=== PATIENT | male | born 1990 | race Caucasian/White ===

== ENCOUNTER 2022-08-30 10:40 | Day surgery (SDC) | payer OTHER, SELFPAY ==
--- NOTE | 2022-08-29 10:56 | HO.ANESPROP2 ---
Documented by User: Marcy Dominguez NP 08/29/22 10:57 HPI - Anesthesia Eval Consult details Narrative: 31yo M for Upper Endoscopy [facility] Past Medical History Medical History (Updated 08/29/22 @ 09:26 by Cooper Almodovar RN) GERD (gastroesophageal reflux disease) Hiatal hernia Surgical History Surgical History (Updated 08/29/22 @ 09:27 by Cooper Almodovar RN) History of esophagogastroduodenoscopy (EGD) Social History Social History (Updated 08/29/22 @ 09:29 by Cooper Almodovar RN) Patient Tobacco Use Status: Never used Tobacco Use of substances other than those prescribed or required for medical reasons: No Are you DNR?: No Advance Directives: No Advance Directives Information Provided: Yes Meds Allergies Allergy/AdvReac Type Severity Reaction Status Date / Time No Known Allergies Allergy Verified 08/30/22 11:01 Home Medications Medication Instructions Recorded Confirmed Last Taken Type esomeprazole magnesium 20 mg 20 mg PO DAILY 08/29/22 08/30/22 08/30/22 History capsule,delayed release (Nexium) Exam Exam Date and Time: August 29, 2022 1056 Assessment and Plan Assessment Anesthesia Assessment: Chart Reviewed Documented by User: Joel Solis MD 08/30/22 12:39 [facility] Past Medical History Medical History (Updated 08/29/22 @ 09:26 by Cooper Almodovar RN) GERD (gastroesophageal reflux disease) Hiatal hernia Family History Family history of problems with anesthesia: No Surgical History Surgical History (Updated 08/29/22 @ 09:27 by Cooper Almodovar RN) History of esophagogastroduodenoscopy (EGD) History of Problems with Anesthesia: No Social History Social History (Updated 08/29/22 @ 09:29 by Cooper Almodovar RN) Patient Tobacco Use Status: Never used Tobacco Use of substances other than those prescribed or required for medical reasons: No Are you DNR?: No Advance Directives: No Advance Directives Information Provided: Yes Meds Allergies Allergy/AdvReac Type Severity Reaction Status Date / Time No Known Allergies Allergy Verified 08/30/22 11:01 Home Medications Medication Instructions Recorded Confirmed Last Taken Type esomeprazole magnesium 20 mg 20 mg PO DAILY 08/29/22 08/30/22 08/30/22 History capsule,delayed release (Nexium) Exam Airway Mallampati Class: II TM Dist: >3cm Neck ROM: Full Assessment and Plan Assessment Anesthesia Assessment: Anesthesia Plan Discussed Final Anesthetic Review Family History of Problems with Anesthesia: No History of Problems with Anesthesia: No NPO: Yes ASA Class: II Final Preanesthetic Review: No Changes in Pt Med Stat, Meds/Allgs Chart Reviewed and Consent Obtained/Reviewed Patient Risk: Low Procedure Risk: Low Anesthetic Plan Anesthetic Plan: MAC: Disposition: Standard PACU
[2022-08-30 11:02] VITALS: BMI 25.1
[2022-08-30 11:04] VITALS: BP 127/86; PULSE 65; RESP 16; TEMP 36.6; O2SAT 100
[2022-08-30] MEDS: Lactated Ringers 1,000 ML 100 ML IVCONT (11:19)
[2022-08-30 12:16] VITALS: BP 101/64; PULSE 85; RESP 16; TEMP 36.4; O2SAT 93
--- NOTE | 2022-08-30 12:22 | P.BOP_ITS ---
Brief Operative Note Date of Service: 08/30/22 Pre-op diagnosis: GERD Post-op diagnosis: other (Hiatal hernia, GERD, Gastric polyps) Procedure: EGD with biopsies Surgeon: Tao Ferris Anesthesia: MAC Was an Steward/Stewardess Lounge used for this Procedure?: No Estimated blood loss (mL): 2.0 Pathology: other (A. EG Junction at 38cm B. Gastric polyps) Condition: stable Disposition: PACU
[2022-08-30 12:31] VITALS: BP 108/70; PULSE 70; RESP 18; TEMP 36.5; O2SAT 95
[2022-08-30 12:43] VITALS: BP 123/87; PULSE 72; RESP 16; O2SAT 98
--- NOTE | 2022-08-30 19:31 | OP_ITS ---
SURGEON: Tao Ferris MD INDICATIONS: The patient presents for evaluation of chronic gastroesophageal reflux. Full consent has been obtained from him for this, including risks of bleeding and perforation. PREOPERATIVE DIAGNOSIS: Chronic gastroesophageal reflux. POSTOPERATIVE DIAGNOSIS: PROCEDURE PERFORMED: Esophagogastroduodenoscopy with biopsy. ESTIMATED BLOOD LOSS: COMPLICATIONS: ANESTHESIA: Monitored anesthesia care. ASSISTANTS: SPECIMENS: POSTOPERATIVE DIAGNOSES: Chronic gastroesophageal reflux, small hiatal hernia, gastric polyps. DESCRIPTION OF PROCEDURE: The patient was placed in the left lateral decubitus position. The Olympus video gastroscope was passed in the posterior oropharynx and upper esophagus under direct vision. The scope was passed slowly to the distal esophagus. The gastroesophageal junction appeared at 38 cm. There was some slight irregularity consistent with reflux but no evidence of esophagitis nor any definitive evidence of Maya mucosa. The scope entered into the stomach. There was a small hiatal hernia. The scope was advanced to the pylorus and the duodenum was cannulated to the descending portion. The duodenum including the bulb appeared normal without mass or ulceration. The scope was withdrawn back to the stomach. The gastric antrum and body appeared normal with good peristalsis. Scope was retroflexed visualizing the proximal stomach carefully, which appeared normal, without any sign of mass or ulceration, other than some hyperplastic appearing gastric polyps. The scope was straightened and withdrawn back to the esophagus. Biopsies were obtained at the EG junction at 38 cm. The scope was readvanced back into the stomach, and biopsies were obtained from some of the gastric polyps. The scope was withdrawn back in the esophagus. The esophageal mucosa otherwise appeared normal. The scope was withdrawn from the patient. He tolerated the procedure well and was returned to the recovery area in stable condition. IMPRESSION: 1. Small hiatal hernia, gastroesophageal reflux. 2. Gastric polyps. PLAN: The results of the biopsies will be checked. He has currently been using 1 [id number] Nexium daily. I did advise him that he could use that twice a day or take 2 every morning to see if that works better for him in controlling his reflux. He will be seen in followup in the office. If the symptoms continue to prove problematic then we may want to consider a repeat pH study and motility study of the esophagus to determine whether or not he would be a good candidate for hiatal hernia surgery. This has been discussed with his . MD ROLO Jonas/RODOLFO / [id number] MARCIE
== END 2022-08-30 13:05 | disposition home or self-care (01) ==
PROVIDERS: PCP Internal Medicine; Visit Provider Internal Medicine
PROC: 0DJ08ZZ Inspection of Upper Intestinal Tract, Via Natural or Artificial Opening Endoscopic (ICD-10-PCS; CPT 43235; principal; 2022-08-30 11:40)
DX: K21.9 Gastro-esophageal reflux disease without esophagitis (principal); K44.9 Diaphragmatic hernia without obstruction or gangrene; K31.7 Polyp of stomach and duodenum; Z79.899 Other long term (current) drug therapy
CPT/HCPCS: 43239; 88305; 88342; J2250

== ENCOUNTER 2025-09-14 12:15 | Day surgery (SDC) | payer OTHER, SELFPAY ==
--- NOTE | 2025-09-11 14:00 | P.CONAN_ITS ---
Documented by User: Marcy Dominguez NP 09/11/25 14:00 HPI - Anesthesia Eval Consult details Narrative: 35yo M for Upper Endoscopy [facility] Past Medical History Medical History (Updated 08/29/22 @ 09:26 by Cooper Almodovar RN) Hiatal hernia GERD (gastroesophageal reflux disease) Family History Family history of problems with anesthesia: No Surgical History Surgical History (Updated 08/29/22 @ 09:27 by Cooper Almodovar RN) History of esophagogastroduodenoscopy (EGD) History of Problems with Anesthesia: No Social History Social History (Updated 08/29/22 @ 09:29 by Cooper Almodovar RN) Are you a primary home health care coordinator to a significant other at home: No Do you presently have visiting nurse or other home services: No Patient Tobacco Use Status: Never used Tobacco Second Hand Smoke Exposure: No Use of substances other than those prescribed or required for medical reasons: No Have you been hit, kicked, punched, or otherwise hurt by someone within the past year? If so, by whom?: No Are you DNR?: No Advance Directives: No Advance Directives Information Provided: Yes Advance Directives on File: No Meds Allergies Allergy/AdvReac Type Severity Reaction Status Date / Time No Known Allergies Allergy Verified 08/30/22 11:01 Home Medications ?Medication ?Instructions ?Recorded ?Confirmed ?Last Taken ?Type esomeprazole magnesium 20 mg 20 mg PO DAILY 08/29/22 1 11/15/24 09/14/25 History capsule,delayed release (Nexium) Assessment and Plan Assessment Anesthesia Assessment: Chart Reviewed Final Anesthetic Review Family History of Problems with Anesthesia: No History of Problems with Anesthesia: No Documented by User: Fortino Akhtar MD 09/14/25 13:05 [facility] Past Medical History Medical History (Updated 08/29/22 @ 09:26 by Cooper Almodovar RN) Hiatal hernia GERD (gastroesophageal reflux disease) Surgical History Surgical History (Updated 08/29/22 @ 09:27 by Cooper Almodovar RN) History of esophagogastroduodenoscopy (EGD) Social History Social History (Updated 08/29/22 @ 09:29 by Cooper Almodovar RN) Are you a primary home health care coordinator to a significant other at home: No Do you presently have visiting nurse or other home services: No Patient Tobacco Use Status: Never used Tobacco Second Hand Smoke Exposure: No Use of substances other than those prescribed or required for medical reasons: No Have you been hit, kicked, punched, or otherwise hurt by someone within the past year? If so, by whom?: No Are you DNR?: No Advance Directives: No Advance Directives Information Provided: Yes Advance Directives on File: No Meds Allergies Allergy/AdvReac Type Severity Reaction Status Date / Time No Known Allergies Allergy Verified 08/30/22 11:01 Home Medications ?Medication ?Instructions ?Recorded ?Confirmed ?Last Taken ?Type esomeprazole magnesium 20 mg 20 mg PO DAILY 08/29/22 1 11/15/24 09/14/25 History capsule,delayed release (Nexium) Exam Airway Mallampati Class: II TM Dist: >3cm Neck ROM: Full Heart: rrr Lungs: cta Assessment and Plan Assessment Anesthesia Assessment: Anesthesia Plan Discussed Final Anesthetic Review NPO: Yes ASA Class: II Final Preanesthetic Review: No Changes in Pt Med Stat, Meds/Allgs Chart Reviewed and Consent Obtained/Reviewed Patient Risk: Intermediate Procedure Risk: Intermediate Anesthetic Plan Anesthetic Plan: MAC: Disposition: Standard PACU
[2025-09-14 12:25] VITALS: BMI 26.1
[2025-09-14 12:35] VITALS: BP 127/67; PULSE 65; RESP 16; TEMP 36.4; O2SAT 98
[2025-09-14] MEDS: Lactated Ringers 1,000 ML 100 ML IVCONT (12:36)
[2025-09-14 14:16] VITALS: BP 110/70; PULSE 80; RESP 16; TEMP 36.2; O2SAT 98
--- NOTE | 2025-09-14 14:18 | P.BOP_ITS ---
Brief Operative Note Date of Service: 09/14/25 Pre-op diagnosis: Maya's esophagus Post-op diagnosis: other (Same, hiatal hernia, gastric polyps) Procedure: EGD with bx Surgeon: Tao Ferris MD Anesthesia: MAC Was an Worker'S Compensation Claims Examiner used for this Procedure?: No Estimated blood loss (mL): 2.0 Pathology: other (A. EG Junction at 38cm B. Gastric polyps) Condition: stable Disposition: PACU
[2025-09-14 14:20] VITALS: BP 106/77; PULSE 80; RESP 20; O2SAT 98
[2025-09-14 14:35] VITALS: BP 112/78; PULSE 66; RESP 13; TEMP 36.2; O2SAT 99
--- NOTE | 2025-09-14 22:11 | OP_ITS ---
DATE OF SERVICE: 09/14/2025 SURGEON: Tao Ferris MD INDICATIONS: The patient presents for followup of chronic gastroesophageal reflux and previous finding of Maya's esophagus. Full consent has been obtained from him for this, including risks of bleeding and perforation. PREOPERATIVE DIAGNOSIS: POSTOPERATIVE DIAGNOSIS: PROCEDURE PERFORMED: Esophagogastroduodenoscopy with biopsies. ESTIMATED BLOOD LOSS: COMPLICATIONS: ANESTHESIA: Medication used, monitored anesthesia care. ASSISTANTS: SPECIMENS: PREOPERATIVE DIAGNOSES: Gastroesophageal reflux and history of Maya's esophagus. POSTOPERATIVE DIAGNOSES: Gastroesophageal reflux and history of Maya's esophagus, small hiatal hernia, gastric polyps. DESCRIPTION OF PROCEDURE: The patient was placed in the left lateral decubitus position. The Olympus video gastroscope was passed in the posterior oropharynx and upper esophagus under direct vision. The scope was passed slowly to the distal esophagus. The gastroesophageal junction appeared at 38 cm. There was some very minimal irregularity consistent with reflux but no evidence of esophagitis nor any definitive evidence of Maya's mucosa. There was a small hiatal hernia. The scope was advanced to the pylorus, and the duodenum was cannulated to the descending portion. The duodenum including the bulb appeared normal without mass or ulceration. The scope was withdrawn back in the stomach. The gastric antrum and body appeared normal with good peristalsis. The scope was retroflexed visualizing the proximal stomach carefully, which appeared normal, without mass or ulceration, other than multiple hyperplastic appearing gastric polyps. Two of these were biopsied. The scope was straightened and withdrawn back to the esophagus. Biopsies were obtained at the EG junction at 38 cm. Again, there was no gross evidence of Maya mucosa. Proximal to this, the esophageal mucosa appeared normal. The scope was withdrawn from the patient. He tolerated the procedure well and was returned to the recovery area in stable condition. IMPRESSION: 1. Small hiatal hernia, history of Maya's esophagus. 2. Gastric polyps. PLAN: The results of the biopsies will be checked. He has been advised to continue his current regimen of the esomeprazole 40 mg daily as he reports that is working well for his reflux. I would recommend a repeat upper endoscopy in 3 years for further surveillance even if today's biopsies do not show any sign of intestinal metaplasia at the EG junction. He will otherwise see me as needed. MD ROLO Jonas/RODOLFO / [id number]
== END 2025-09-14 14:57 | disposition home or self-care (01) ==
PROVIDERS: PCP Internal Medicine; Visit Provider Internal Medicine
PROC: 0DJ08ZZ Inspection of Upper Intestinal Tract, Via Natural or Artificial Opening Endoscopic (ICD-10-PCS; CPT 43235; principal; 2025-09-14 13:40)
DX: K21.9 Gastro-esophageal reflux disease without esophagitis (principal); Z87.19 Personal history of other diseases of the digestive system; K44.9 Diaphragmatic hernia without obstruction or gangrene; K31.7 Polyp of stomach and duodenum; Z79.899 Other long term (current) drug therapy
CPT/HCPCS: 43239; 88305; 88313; 88342; J2003; J2704; J3010